=== PATIENT | male | born 1980 ===

== ENCOUNTER → 2021-11-24 | Outpatient (CLI) | payer OTHER ==
--- NOTE | 2021-11-24 14:27 | RAD ---
PROCEDURE: MG DIAGNOSTIC BILAT HISTORY: The patient is 41 years old and is seen for Reason: RT NIPPLE TENDERNESS / Spl. Instructions : / History: . COMPARISON: Ultrasound October 30, 2021 TECHNIQUE: CC and MLO views of both breasts were obtained. Images were processed by the [employer] computer-aided detection system. DENSITY: The breast tissue is predominantly fatty. FINDINGS: Minimal right gynecomastia. No suspicious mass, architectural distortion or microcalcific ation. IMPRESSION: 1. Minimal right gynecomastia. Recommend follow-up with theatre director regarding right nipple ten derness. BI-RADS category 2 Benign Patient entered into a reminder system for annual screening mammogram. Electronically signed by: Matt Joe DO (11/24/2021 2:25 PM) [email or web address]
== END ==
LOC: MAMMO 13:50
PROVIDERS: ATTEND Nurse Practitioner Gerontology
DX: N62 Hypertrophy of breast (principal); N61.0 Mastitis without abscess
CPT/HCPCS: 77066